=== PATIENT | female | born 2000 | race Caucasian/White ===

== ENCOUNTER 2021-12-07 20:04 | Emergency (ER) | payer OTHER ==
[2021-12-07 21:13] LABS: BILIRUBIN NEGATIVE (NEGATIVE); BLOOD 3+ Ery/uL (NEGATIVE); CLARITY CLEAR (CLEAR); COLOR YELLOW (YELLOW); GLUCOSE (U) NORMAL (NORMAL); LEUKOCYTES NEGATIVE Leu/uL (NEGATIVE); NITRITE NEGATIVE (NEGATIVE); PROTEIN TRACE (LOW) mg/dL (NEGATIVE); SPECIFIC GRAVITY >=1.030 (1.001-1.030)
[2021-12-07 21:21] LABS: BACTERIA 1+; MUCOUS TRACE; URINARY RBC TNTC
[2021-12-07 22:19] LABS: BASOPHIL 0.3 % (0-2); EOSINOPHIL 2.7 % (0-5); HCT 36.1 % (37.0-47.0); HGB 11.8 g/dl (12.5-16.0); LYMPHOCYTE 21.8 % (15-48); MCH 29.3 pg (25.0-31.0); MCHC 32.7 g/dL (32.0-36.0); MCV 89.6 fL (78.0-100.0); MONOCYTE 7.3 % (0-12); MPV 10.8 fL (6.0-9.5); NEUTROPHIL 67.5 % (41-80); NRBC 0; PLT 296 K/uL (150-400); RBC 4.03 M/uL (4.20-5.40); RDW 12.4 % (11.5-14.0); WBC 10.2 K/uL (4.0-10.5)
[2021-12-07 22:35] LABS: BUN/CREAT RATIO (CALC) 17.6 RATIO; CREATININE 0.51 mg/dL (0.51-0.95); POTASSIUM 4.4 mmol/L (3.5-5.1)
== END 2021-12-08 00:16 | disposition home or self-care (01) ==
LOC: FER 20:04
PROVIDERS: Nurse Practitioner Family
DX: O46.91 Antepartum hemorrhage, unspecified, first trimester (principal); Z3A.09 9 weeks gestation of pregnancy
CPT/HCPCS: 36415; 76801; 80048; 81001; 84702; 85025; 86900; 86901